=== PATIENT | female | born 1960 | race Caucasian/White ===

== ENCOUNTER 2021-06-08 16:34 | Emergency (ER) | payer OTHER ==
--- NOTE | 2021-06-08 20:02 | EDPHYS ---
Physician Documentation [facility] Name: Lamar Whaley Age: 61 yrs Sex: Female : 1960 Arrival Date: 06/08/2021 Time: 16:39 Bed 15 Private MD: AMOS Physician Michael Huggins HPI: 06/08 19:48 This 61 yrs old Female presents to ER via Wheelchair with complaints of Feet tino Swelling. 19:48 The patient presents with decreased range of motion, pain, swelling, tenderness. The tino complaints affect the right foot. Context: The problem was sustained outdoors. Onset: The symptoms/episode began/occurred 3 day(s) ago. Modifying factors: The symptoms are alleviated by elevation of extremity, the symptoms are aggravated by weight bearing, movement, wearing shoes. Associated signs and symptoms: The patient has no apparent associated signs or symptoms. Severity of symptoms: At their worst the symptoms were moderate, in the emergency department the symptoms are unchanged. The patient has not experienced similar symptoms in the past. Historical: - Allergies: 16:59 TETRACYCLINES; ca1 - Home Meds: 16:59 None [Active]; ca1 - PMHx: 16:59 None; ca1 - PSHx: 16:59 hysterectomy; ca1 - Immunization history:: Client reports having NOT received the Covid vaccine. Flu vaccine is up to date. - Social history:: Smoking status: Patient reports the use of cigarette tobacco products, smokes one-half pack cigarettes per day. - Family history:: not pertinent. ROS: 19:48 Constitutional: Negative for fever, chills, and weight loss, Eyes: Negative for injury, tino pain, redness, and discharge, ENT: Negative for injury, pain, and discharge, Neck: Negative for injury, pain, and swelling, Cardiovascular: Negative for chest pain, palpitations, and edema, Respiratory: Negative for shortness of breath, cough, wheezing, and pleuritic chest pain, Abdomen/GI: Negative for abdominal pain, nausea, vomiting, diarrhea, and constipation, Back: Negative for injury and pain, : Negative for injury, bleeding, discharge, and swelling, Skin: Negative for injury, rash, and discoloration, Neuro: Negative for headache, weakness, numbness, tingling, and seizure, Psych: Negative for depression, anxiety, suicide ideation, homicidal ideation, and hallucinations, Allergy/Immunology: Negative for hives, rash, and allergies, Endocrine: Negative for neck swelling, polydipsia, polyuria, polyphagia, and marked weight changes, Hematologic/Lymphatic: Negative for swollen nodes, abnormal bleeding, and unusual bruising. 19:48 MS/extremity: Positive for decreased range of motion, pain, swelling, tenderness, of the lateral side of right foot, arch of right foot and dorsum of right foot. Exam: 19:48 Constitutional: This is a well developed, well nourished patient who is awake, alert, tino and in no acute distress. Head/Face: Normocephalic, atraumatic. Eyes: Pupils equal round and reactive to light, extra-ocular motions intact. Lids and lashes normal. Conjunctiva and sclera are non-icteric and not injected. Cornea within normal limits. Periorbital areas with no swelling, redness, or edema. ENT: Nares patent. No nasal discharge, no septal abnormalities noted. Tympanic membranes are normal and external auditory canals are clear. Oropharynx with no redness, swelling, or masses, exudates, or evidence of obstruction, uvula midline. Mucous membranes moist. Neck: Trachea midline, no thyromegaly or masses palpated, and no cervical lymphadenopathy. Supple, full range of motion without nuchal rigidity, or vertebral point tenderness. No Meningismus. Chest/axilla: Normal chest wall appearance and motion. Nontender with no deformity. No lesions are appreciated. Cardiovascular: Regular rate and rhythm with a normal S1 and S2. No gallops, murmurs, or rubs. Normal PMI, no JVD. No pulse deficits. Respiratory: Lungs have equal breath sounds bilaterally, clear to auscultation and percussion. No rales, rhonchi or wheezes noted. No increased work of breathing, no retractions or nasal flaring. Abdomen/GI: Soft, non-tender, with normal bowel sounds. No distension or tympany. No guarding or rebound. No evidence of tenderness throughout. Back: No spinal tenderness. No costovertebral tenderness. Full range of motion. Female : Normal external genitalia. Skin: Warm, dry with normal turgor. Normal color with no rashes, no lesions, and no evidence of cellulitis. Neuro: Awake and alert, GCS 15, oriented to person, place, time, and situation. Cranial nerves II-XII grossly intact. Motor strength 5/5 in all extremities. Sensory grossly intact. Cerebellar exam normal. Normal gait. Psych: Awake, alert, with orientation to person, place and time. Behavior, mood, and affect are within normal limits. 19:48 Musculoskeletal/extremity: ROM: limited active range of motion, in the right foot, limited passive range of motion, Circulation is intact in all extremities. Sensation intact. Compartment Syndrome exam of affected extremity: is normal. DVT Exam: negative Homans' sign noted on exam, no appreciated bluish discoloration, no erythema, no increased warmth, pain, swelling, tenderness. Vital Signs: 16:56 BP 128 / 68; Pulse 92; Resp 18 S; Temp 97.3(TE); Pulse Ox 99% on R/A; Weight 72.57 kg ca1 (R); Height 5 ft. 1 in. (154.94 cm); Pain 7/10; 19:49 BP 127 / 73; Pulse 73; Resp 17; Pulse Ox 97% on R/A; Pain 7/10; bs2 16:56 Body Mass Index 30.23 (72.57 kg, 154.94 cm) ca1 MDM: 19:38 Patient medically screened. [facility] 19:50 Differential diagnosis: fracture, sprain, arthritis, gout. Data reviewed: vital signs, [facility] nurses notes, radiologic studies, plain films. Data interpreted: electronic device monitor: not applicable for this patient encounter. rate is 73 beats/min, rhythm is regular, Pulse oximetry: on room air is 97 %. Test interpretation: by ED physician or midlevel provider: plain radiologic studies. Counseling: I had a detailed discussion with the patient and/or guardian regarding: the historical points, exam findings, and any diagnostic results supporting the discharge/admit diagnosis, radiology results, the need for outpatient follow up, for definitive care, a family practitioner, a orthopedic surgeon. 06/08 19:28 Order name: XRAY Chest (1 view) [facility] 06/08 19:28 Order name: Cardiac monitoring; Complete Time: 19:46 [facility] 06/08 19:47 Order name: Foot Right 3 View XRAY [facility] 06/08 19:28 Order name: O2 Per Protocol; Complete Time: 19:47 [facility] 06/08 20:02 Order name: Walking boot [facility] Administered Medications: 19:46 CANCELLED (Duplicate Order): NS 0.9% 1000 ml IV at 75 ml/hr continuous tino Disposition Summary: 06/08/21 20:01 Discharge Ordered Location: Home [facility] Problem: new tino Symptoms: have improved tino Condition: Stable tino Diagnosis - Pain in right foot tino - Sprain of tarsal ligament of right foot - swelling tino Followup: tino - With: Private Physician - When: 2 - 3 days - Reason: Recheck today's complaints, Continuance of care, Re-evaluation by your physician Followup: tino - With: Stuart Viveros MD - When: 2 - 3 days - Reason: Recheck today's complaints, Re-evaluation by your physician Discharge Instructions: - Discharge Summary Sheet tino - Foot Sprain tino - RICE Therapy for Routine Care of Injuries tino - RICE Therapy for Routine Care of Injuries, [id number] tino - How to Use Cold Therapy tino - Foot Pain tino Forms: - Medication Reconciliation Form tino - Thank You Letter tino - Antibiotic Education tino - Prescription Opioid Use [facility] Prescriptions: - Ibuprofen 600 mg Oral Tablet - take 1 tablet by ORAL route every 6 hours As needed take with food; 20 tablet; [facility] Refills: 0, Product Selection Permitted Signatures: Dispatcher [employer] EDMichael Cochran MD MD cha Acob, Cheryl RN RN ca1 Corrections: (The following items were deleted from the chart) 16:59 16:59 Allergies: No Known Allergies; ca1 ca1 19:46 19:28 EKG - Nurse/Tech ordered. [facility] 19:46 19:28 Urine Dipstick-Ancillary ordered. [facility] 19:46 19:28 NS 0.9% 1000 ml IV at 75 ml/hr continuous ordered. [facility] 19:47 19:28 IV Saline Lock ordered. [facility] 19:47 19:28 Labs collected and sent ordered. [facility] 19:47 19:28 O2 Sat Monitoring ordered. [facility] 20:44 19:29 Extrem Venous W Compression Joshua+[id number] ordered. EDMS EDMS
--- NOTE | 2021-06-08 20:02 | ER ---
Nurse's Notes [facility] Name: Laamr Whaley Age: 61 yrs Sex: Female : 1960 Arrival Date: 06/08/2021 Time: 16:39 Bed 15 Private MD: Diagnosis: Pain in right foot;Sprain of tarsal ligament of right foot-swelling Presentation: 06/08 16:56 Chief complaint: Patient states: R foot pain and swelling x 2 days. Denies recent ca1 injury on R foot. Coronavirus screen: Client denies travel out of the [place] in the last 14 days. At this time, the client does not indicate any symptoms associated with coronavirus-19. Ebola Screen: Patient negative for fever greater than or equal to 101.5 degrees Fahrenheit, and additional compatible Ebola Virus Disease symptoms Patient denies exposure to infectious person. Patient denies travel to an Ebola-affected area in the 21 days before illness onset. No symptoms or risks identified at this time. Initial Sepsis Screen: Does the patient meet any 2 criteria? No. Patient's initial sepsis screen is negative. Does the patient have a suspected source of infection? No. Patient's initial sepsis screen is negative. Risk Assessment: Do you want to hurt yourself or someone else? Patient reports no desire to harm self or others. Onset of symptoms was June 08, 2021. 16:56 Method Of Arrival: Wheelchair ca1 16:56 Acuity: WINSOME 3 ca1 Historical: - Allergies: 16:59 TETRACYCLINES; ca1 - Home Meds: 16:59 None [Active]; ca1 - PMHx: 16:59 None; ca1 - PSHx: 16:59 hysterectomy; ca1 - Immunization history:: Client reports having NOT received the Covid vaccine. Flu vaccine is up to date. - Social history:: Smoking status: Patient reports the use of cigarette tobacco products, smokes one-half pack cigarettes per day. - Family history:: not pertinent. Screenin:50 Abuse screen: Denies threats or abuse. Denies injuries from another. Nutritional bs2 screening: No deficits noted. Tuberculosis screening: No symptoms or risk factors identified. Fall Risk None identified. Assessment: 19:50 General: Appears in no apparent distress. uncomfortable, well groomed, well developed, bs2 well nourished, Behavior is calm, cooperative, appropriate for age. Pain: Complains of pain in right foot Pain currently is 7 out of 10 on a pain scale. Pain began 2-3 days ago. Neuro: No deficits noted. Cardiovascular: No deficits noted. Respiratory: No deficits noted. GI: No deficits noted. No signs and/or symptoms were reported involving the gastrointestinal system. : No deficits noted. No signs and/or symptoms were reported regarding the genitourinary system. EENT: No deficits noted. No signs and/or symptoms were reported regarding the EENT system. Derm: No deficits noted. No signs and/or symptoms reported regarding the dermatologic system. Musculoskeletal: No deficits noted. No signs and/or symptoms reported regarding the musculoskeletal system. Vital Signs: 16:56 BP 128 / 68; Pulse 92; Resp 18 S; Temp 97.3(TE); Pulse Ox 99% on R/A; Weight 72.57 kg ca1 (R); Height 5 ft. 1 in. (154.94 cm); Pain 7/10; 19:49 BP 127 / 73; Pulse 73; Resp 17; Pulse Ox 97% on R/A; Pain 7/10; bs2 16:56 Body Mass Index 30.23 (72.57 kg, 154.94 cm) ca1 ED Course: 16:39 Patient arrived in ED. mr 16:58 Triage completed. ca1 16:59 Arm band placed on right wrist. ca1 19:27 Michael Huggins MD is Attending Physician. tino 19:29 Jahaira Gaston, RN is Primary Nurse. bs2 19:50 Patient has correct armband on for positive identification. Call light in reach. Side bs2 rails up X 1. Pulse ox on. NIBP on. 20:00 Stuart Viveros MD is Referral Physician. tino 20:12 XRAY Chest (1 view) In Process Unspecified. EDMS 20:12 Foot Right 3 View XRAY In Process Unspecified. EDMS 20:59 No provider procedures requiring assistance completed. Patient did not have IV access bs2 during this emergency room visit. Small short walking boot, RT foot. Administered Medications: 19:46 CANCELLED (Duplicate Order): NS 0.9% 1000 ml IV at 75 ml/hr continuous tino Outcome: 20:01 Discharge ordered by . tino 21:00 Discharged to home ambulatory, with family. bs2 21:00 Condition: improved 21:00 Discharge instructions given to patient, Instructed on discharge instructions, follow up and referral plans. PARESH Demonstrated understanding of instructions, follow-up care, medications, splint care, Prescriptions given X 1. 21:01 Patient left the ED. bs2 Signatures: Dispatcher [employer] EDMichael Cochran MD MD cha Rivera, Mary mr Bertha Strickland, VIVEK RN ca1 Jahaira Gaston RN RN bs2 Corrections: (The following items were deleted from the chart) 16:59 16:59 Allergies: No Known Allergies; ca1 ca1
--- NOTE | 2021-06-08 20:27 | RAD REPORT ---
EXAM DESCRIPTION: RAD - Chest Single View - 06/08/2021 8:12 pm CLINICAL HISTORY: COUGH COMPARISON: November 2019 TECHNIQUE: AP portable chest image was obtained 06/08/2021 8:12 pm . FINDINGS: Lungs are clear. Heart and vasculature are normal. No measurable pleural effusion and no p neumothorax. No acute bony abnormality seen. No acute aortic findings suspected. IMPRESSION: No acute cardiopulmonary process. No significant change from comparison study.
--- NOTE | 2021-06-08 20:33 | RAD REPORT ---
EXAM DESCRIPTION: RAD - Foot Right 3 View - 06/08/2021 8:12 pm CLINICAL HISTORY: PAIN COMPARISON: No comparisonsNone. FINDINGS: No fracture, dislocation or periosteal reaction. No acute or destructive bone process. No significant joint degenerative change. No plantar spur present. Soft tissue edema is evident but there is no air or foreign body seen. IMPRESSION: Soft tissue swelling right foot with no acute bone or joint finding.
[2021-06-08 21:06] VITALS: TEMP 97.3
[2021-06-08 21:07] VITALS: BP 127/73; O2SAT 97
== END 2021-06-08 21:01 | disposition home or self-care (01) ==
LOC: ER 16:34
DX: S93.611A Sprain of tarsal ligament of right foot, initial encounter (principal); F17.210 Nicotine dependence, cigarettes, uncomplicated; Z88.3 Allergy status to other anti-infective agents
CPT/HCPCS: 71045; 99284

== ENCOUNTER 2023-05-10 23:16 | Emergency (ER) | payer OTHER ==
--- OUTSIDE RECORDS SUMMARY | 2023-05-10 23:19 | XMS REPORT | Continuity of Care Document ---
:1960 Author Organization [facility] [place] t Address [address] [facility]. [address] [place] [address] Care Team Providers Name Role Phone OLGA MARTINEZ Primary Care Physician Unavailable ELIZABETH Attending Clinician Unavailable PARTH HERRERA Attending Clinician Unavailable ALMAS GUTIERREZ K.[place] Attending Clinician Unavailable Doctor Unassigned, [place] Attending Clinician Unavailable Matt NI, Sendkimberly K.H. Attending Clinician PREM VALDEZ Attending Clinician Unavailable ELIZABETH Admitting Clinician Unavailable Payers Payer Name Policy Type Policy Number Effective Date Expiration Date Sky rausch [facility] STAR [id number] 2016 00:00:00 PLUS Problems Condition Condition Condition Status Onset Resolution Last Treating Co mments Source Name Details Category Date Date Treatment Clinician Date Cannabis Cannabis Disease Active 2006-11 Overview: Un pravin abuse abuse 0-22 Formattin ity of 00:00: g of this [place] 00 note Medical might be Branch different from the original. 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 Allergies, Adverse Reactions, Alerts Allergy Allergy Status Severity Reaction(s) Onset Inactive Treating Comm ents Source Name Type Date Date Clinician TETRACYC DRUG Active Other-Cmnt Univ ers LINE INGREDI 08-17 ity of 00:00: [place] 00 Medical Branch Tetracyc Propensi Active Other - See Burning Univers line ty to comments 08-17 Feeling ity of adverse 00:00: [place] reaction 00 Medical s [place] Social History Social Habit Start Date Stop Date Quantity Comments Source Exposure to Not sure [facility] SARS-CoV-2 (event) Medica l [place] Tobacco use and 2021-08-17 2021-08-17 Never used [facility] exposure 00:00:00 00:00:00 [facility] Sex Ass[birth year] [facility] 00:00:00 00:00:00 [facility] Smoking Status Start Date Stop Date Source Current every day smoker 2021-08-17 00:00:00 Uni versity [facility] Medications Ordered Filled Start Stop Current Ordering Indication Dosage Frequency Signature Comments Components Source Medication Medication Date Date Medication? Clinician (SIG) Name Name methylPREDN Yes [id number] 84mg Take 21 Univers ISolone 7-28 9107 tablets by ity of (MEDROL, 00:00: mouth [place] MICHELE,) 4 mg 00 SEE-INSTRU Med ical tablets CTIONS. Branch follow package directions methylPREDN 2020- Yes [id number] 84mg Take 21 Univers ISolone 7-28 9107 tablets by ity of (MEDROL, 00:00: mouth [place] MICHELE,) 4 mg 00 SEE-INSTRU Med ical tablets CTIONS. Branch follow package directions methylPREDN 2020-0 Yes [id number] 84mg Take 21 Univers ISolone 7-28 9107 tablets by ity of (MEDROL, 00:00: mouth [place] MICHELE,) 4 mg 00 SEE-INSTRU Med ical tablets CTIONS. Branch follow package directions methylPREDN Yes [id number] 84mg Take 21 Univers ISolone 7-28 9107 tablets by ity of (MEDROL, 00:00: mouth [place] MICHELE,) 4 mg 00 SEE-INSTRU Med ical tablets CTIONS. Branch follow package directions QUETIAPINE 2006-11 Yes 2 Tab Oral U nivers 25 MG ORAL 0-22 PRN for ity of TAB 00:00: anxiety up [place] 00 to 3 times Medical in a day Branch CITALOPRAM 2006-11 Yes 1 Tab Oral U nivers 20 MG ORAL 0-22 DAILY ity of TAB 00:00: [place] 00 Medical Branch TRAZODONE 2006-11 Yes one tab PO Un pravin 100 MG ORAL 0-22 QHS ity of TAB 00:00: [place] 00 Medical Branch QUETIAPINE 2006-11 Yes 2 Tab Oral U nivers 25 MG ORAL 0-22 PRN for ity of TAB 00:00: anxiety up [place] 00 to 3 times Medical in a day Branch CITALOPRAM 2006-11 Yes 1 Tab Oral U nivers 20 MG ORAL 0-22 DAILY ity of TAB 00:00: [place] 00 Medical Branch TRAZODONE 2006-11 Yes one tab PO Un pravin 100 MG ORAL 0-22 QHS ity of TAB 00:00: [place] 00 Medical Branch QUETIAPINE 2006-11 Yes 2 Tab Oral U nivers 25 MG ORAL 0-22 PRN for ity of TAB 00:00: anxiety up [place] 00 to 3 times Medical in a day Branch CITALOPRAM 2006-11 Yes 1 Tab Oral U nivers 20 MG ORAL 0-22 DAILY ity of TAB 00:00: [place] 00 Medical Branch TRAZODONE 2006-11 Yes one tab PO Un pravin 100 MG ORAL 0-22 QHS ity of TAB 00:00: [place] 00 Medical Branch QUETIAPINE 2006-11 Yes 2 Tab Oral U nivers 25 MG ORAL 0-22 PRN for ity of TAB 00:00: anxiety up [place] 00 to 3 times Medical in a day Branch CITALOPRAM 2006-11 Yes 1 Tab Oral U nivers 20 MG ORAL 0-22 DAILY ity of TAB 00:00: [place] 00 Medical Branch TRAZODONE 2006-11 Yes one tab PO Un pravin 100 MG ORAL 0-22 QHS ity of TAB 00:00: [place] 00 Medical Branch Vital Signs Vital Name Observation Time Observation Value Comments Source Systolic blood 2021-08-17 19:51:00 145 mm[Hg] Univer sity of pressure [facility] Diastolic blood 2021-08-17 19:51:00 91 mm[Hg] Unive rsity of pressure [facility] Heart rate 2021-08-17 19:47:00 75 /min [facility] Respiratory rate 2021-08-17 19:47:00 20 /min Univ ersity [facility] Body height 2021-08-17 19:47:00 154.9 cm [facility] Body weight 2021-08-17 19:47:00 70.217 kg [facility] BMI 2021-08-17 19:47:00 29.25 kg/m2 [facility] Oxygen saturation in 2021-08-17 19:47:00 95 /min [facility] Arterial blood by [facility] Pulse oximetry [place] Procedures Procedure Date / Time Performing Clinician Source Performed INSURANCE CORRESPONDENCE 2021-11-27 06:01:00 Doctor Unassigned, [facility] Name [facility] INSURANCE CORRESPONDENCE 2021-10-15 06:01:00 Doctor Unassigned, [facility] Name [facility] HB ECG ROUTINE & RHYTHM 2021-08-17 19:50:57 Almas Gutierrez [facility] Encounters Start End Encounter Admission Attending Care Care Encounter Source Date/Time Date/Time Type Type Clinicians Facility Department ID 2022-06-08 2022-06-08 Outpatient AYLIN NEWELL [id number] 10:44:00 10:44:00 HN [id number] da [facility] Outre h Program 2022-01-14 2022-01-14 Outpatient Mckayla HERRERA [facility] [id number] Univers 08:30:00 08:30:00 PARTH [facility] 2021-12-03 2021-12-03 Outpatient Mckayla GUTIERREZ [facility] [id number] Univers 13:00:00 13:00:00 SENDIL [facility] 2021-11-27 2021-11-27 Outpatient Mckayla GUTIERREZ [facility] [id number] Univers 13:00:00 13:00:00 SENDIL [facility] 2021-11-27 2021-11-27 Orders Doctor ALEX [id number] Univers 00:00:00 00:00:00 Only Unassigned, NAIDA [id number] ity of [place] [facility] [id number] Ranjith as [phone] [address] 2021-11-03 2021-11-03 [facility] [id number] Univers 13:00:00 13:00:00 SENDIL ity [facility] 2021-10-16 2021-10-16 Outpatient R MATT [facility] [id number] Univers 13:00:00 13:00:00 SENDIL ity [facility] 2021-10-15 2021-10-15 [facility] [id number] Univers 00:00:00 00:00:00 SENDIL ity [facility] 2021-10-15 2021-10-15 Orders Doctor ALEX [id number] Univers 00:00:00 00:00:00 Only Unassigned, NAIDA [id number] ity of [place] [facility] [id number] Ranjith as [phone] [address] 2021-10-07 2021-10-07 [facility] [id number] Univers 00:00:00 00:00:00 Sendil Cami MARTIN [id number] ity [facility] [id number] [place] PROF[place] [phone] Mt dical NAL 059 [facility] 2021-09-29 2021-09-29 Outpatient R MATT [facility] [id number] Univers 14:30:00 14:30:00 SENDIL ity [facility] 2021-09-21 2021-09-21 [facility] [id number] Univers 13:00:00 13:00:00 SENDIL ity [facility] 2021-09-10 2021-09-10 [facility] [id number] Univers 00:00:00 00:00:00 SENDIL ity [facility] 2021-09-092021-09-09 Outpatient R MATT [facility] [id number] Univers 16:00:00 16:00:00 SENDIL ity [facility] 2021-08-26 2021-08-26 Outpatient R MATT [facility] [id number] Univers 00:00:00 00:00:00 [facility]-08-17 2021-08-17 [facility] [id number] Univers 14:30:00 15:12:46 [facility] 2021-08-17 2021-08-17 [facility] [id number] Univers 14:13:58 15:12:46 [facility]il [id number] Man leung PROFESSIO [phone] Mt dical [facility]9 [facility] 2021-08-17 2021-08-17 [facility] [id number] Univers 14:30:00 14:30:00 SENDIL [facility] 2021-07-20 2021-07-20 [facility] [id number] Univers 13:30:00 13:30:00 SENDIL [facility] 2021-06-24 2021-06-24 [facility] [id number] Univers 13:30:00 13:30:00 PREM [facility] 2021-06-23 2021-06-23 [facility] [id number] Univers 14:15:00 14:15:00 PARTH [facility] Results This patient has no known results.
[2023-05-10] MEDS ORDERED: CEFAZOLIN SODIUM 1 GM/VIAL ONE (23:40)
[2023-05-10] MEDS ORDERED: FENTANYL CITR 100 MCG/2 ML ONE (23:40)
[2023-05-10] MEDS ORDERED: TETANUS & DIPHTHERIA TOX,ADULT 0.5 ML VIAL ONE (23:41)
[2023-05-10] MEDS ORDERED: NA CHLORIDE 0.9% 100 ML ONE (23:41)
[2023-05-10 23:55] LABS: Absolute Lymphocytes (CBC) 2.3 K/uL (0.7-4.9); Hematocrit 44.5 % (36.0-45.0); Lymphocytes % 36.7 % (15.3-44.8); MCV 86.7 fL (80-100); MPV 7.9 fL (7.6-11.3); RBC Red Blood Cell Count 5.13 M/uL (3.86-4.86)
[2023-05-11 00:03] LABS: Potassium 3.7 mEq/L (3.5-5.1)
[2023-05-11] MEDS ORDERED: KETAMINE HCL IN 0.9 % NACL 50 MG/5 ML SYRINGE IV ONE (00:13)
[2023-05-11] MEDS ORDERED: NA CHLORIDE 0.9% 1,000 ML ONE (00:16)
--- NOTE | 2023-05-11 01:47 | EDPHYS ---
Physician Documentation [facility] Name: Lamar Whaley Age: 63 yrs Sex: Female : 1960 Arrival Date: 05/10/2023 Time: 23:16 Bed 3 Private MD: ED Physician Saad Long HPI: 05/11 01:57 This 63 yrs old Female presents to ER via EMS with complaints of Fall Injury. rt 01:57 Patient presents to the ED following mechanical fall downstairs. Patient reportedly had rt an open fracture to the right wrist, patient complains of right ankle pain. Denies other acute complaints at this time. Patient is a acute issue, severe in severity, nonradiating, no other aggravating alleviating factors.. Historical: - Allergies: 05/10 23:23 TETRACYCLINES; kd3 - PSHx: 23:23 hysterectomy; kd3 - Immunization history:: Adult Immunizations up to date. - Social history:: Smoking status: Patient reports the use of cigarette tobacco products, smokes one-half pack cigarettes per day. - Immunization history: Last tetanus immunization: < 10 years ago. - Family history:: not pertinent. ROS: 05/11 01:57 Constitutional: Negative for fever, chills, and weight loss, Neck: Negative for injury, rt pain, and swelling, Cardiovascular: Negative for chest pain, palpitations, and edema, Respiratory: Negative for shortness of breath, cough, wheezing, and pleuritic chest pain, Abdomen/GI: Negative for abdominal pain, nausea, vomiting, diarrhea, and constipation, Neuro: Negative for headache, weakness, numbness, tingling, and seizure, Psych: Negative for depression, anxiety, suicide ideation, homicidal ideation, and hallucinations. MS/extremity: Positive for injury or acute deformity, laceration. Exam: 01:57 Constitutional: This is a well developed, well nourished patient who is awake, alert, rt and in no acute distress. Head/Face: Normocephalic, atraumatic. Neck: Trachea midline, no thyromegaly or masses palpated, and no cervical lymphadenopathy. Supple, full range of motion without nuchal rigidity, or vertebral point tenderness. No Meningismus. Chest/axilla: Normal chest wall appearance and motion. Nontender with no deformity. No lesions are appreciated. Cardiovascular: Regular rate and rhythm with a normal S1 and S2. No gallops, murmurs, or rubs. Normal PMI, no JVD. No pulse deficits. Respiratory: Lungs have equal breath sounds bilaterally, clear to auscultation and percussion. No rales, rhonchi or wheezes noted. No increased work of breathing, no retractions or nasal flaring. Abdomen/GI: Soft, non-tender, with normal bowel sounds. No distension or tympany. No guarding or rebound. No evidence of tenderness throughout. Neuro: Awake and alert, GCS 15, oriented to person, place, time, and situation. Cranial nerves II-XII grossly intact. Motor strength 5/5 in all extremities. Sensory grossly intact. Cerebellar exam normal. Normal gait. Psych: Awake, alert, with orientation to person, place and time. Behavior, mood, and affect are within normal limits. 01:57 Musculoskeletal/extremity: Obvious dorsal deformity to the distal right forearm, there is a puncture wound noted overlying the ulna at the area of the fracture concerning for open fracture. Pulses, motor, sensation are intact. There is mild to moderate swelling at the right ankle, tenderness diffusely at that region, range of motion limited due to pain. No other swelling, deformity, tenderness to palpation x4 extremities. Vital Signs: 05/10 23:20 BP 146 / 78; Pulse 73; Resp 16; Temp 97.6(TE); Pulse Ox 94% on R/A; Weight 71.21 kg; kd3 05/11 00:00 BP 138 / 70; Pulse 58; Resp 16; Temp 97.6; Pulse Ox 99% on 3 lpm NC; aa9 01:08 BP 163 / 95; Pulse 74; Resp 14 S; Pulse Ox 98% on R/A; as7 03:09 BP 152 / 78; Pulse 72; Resp 14 S; Pulse Ox 95% on R/A; as7 [place] Coma Score: 05/10 23:20 Eye Response: spontaneous(4). Motor Response: obeys commands(6). Verbal Response: aa9 oriented(5). Total: 15. Trauma Score (Adult): 23:20 Eye Response: spontaneous(1); Verbal Response: oriented(1); Motor Response: obeys aa9 commands(2); Systolic BP: > 89 mm Hg(4); Respiratory Rate: 10 to 29 per min(4); [place] Score: 15; Trauma Score: 12 Procedures: 05/11 01:57 Reduction: of the right wrist, using traction, manipulation, Immobilized with rt Sugar-tong splint. Patient tolerated well. Post reduction film - reveals improved alignment. Moderate sedation: Pre-procedure assessment: the patient has been NPO 3 hour(s) prior to arrival, ASA physical classification: I - healthy, no underlying organic disease, Airway assessment: able to hyperextend neck, able to maintain airway, can open mouth without difficulty, Mallampati classification of tongue size: I - faucial pillars, soft palate, and uvula can be fully visualized, Monitoring during procedure: monitor technician, continuous pulse oximetry, nurse at bedside at all times, Medications employed: Ketamine, 75 mg(s), Post-procedure assessment: the patient is not sedated, Ardon sedation score: Respiratory status: even and unlabored, a reversal agent was not used. MDM: 05/10 23:27 Patient medically screened. rt 05/11 01:57 Differential diagnosis: fracture, laceration. Data reviewed: vital signs, nurses notes, rt lab test result(s), radiologic studies. Consideration of Admission/Observation Patient requires transfer to trauma center for higher level of care. I considered the following discharge prescriptions or medication management in the emergency department Medications were administered in the Emergency Department. See MAR. Independent interpretation of the following test(s) in the Emergency Department X-Ray: My interpretation is Fracture seen on interpretation of the x-ray images. Counseling: I had a detailed discussion with the patient and/or guardian regarding: the historical points, exam findings, and any diagnostic results supporting the discharge/admit diagnosis, lab results, radiology results, the need to transfer to another facility. 05/10 23:26 Order name: Basic Metabolic Panel; Complete Time: :34 rt 05/10 23:26 Order name: CBC with Diff; Complete Time: :34 rt 05/10 23:26 Order name: Type And Screen; Complete Time: :34 rt 05/11 01:32 Order name: ABO/RH no charge; Complete Time: 01:34 EDMS 05/10 23:26 Order name: CT Traumagram (Head C Spine CAP W Con) rt 05/10 23:26 Order name: Forearm Right XRAY rt 06/13 23:26 Order name: Elbow Right 3 View XRAY rt 05/10 23:26 Order name: Ankle Right 3 View XRAY rt 05/11 00:25 Order name: Forearm Right XRAY rt 05/10 23:26 Order name: Labs collected and sent; Complete Time: 23:52 rt 05/11 01:46 Order name: Misc. Order: Boot to right foot; Complete Time: 02:21 rt Administered Medications: 05/10 23:37 Drug: fentaNYL (PF) IVP 100 mcg Route: IVP; Site: left antecubital; aa9 23:47 Drug: Tetanus-Diphtheria Toxoid IM Adult 0.5 ml {Desk Pen Set Assembler: Watchfinder. Exp: aa9 05/07/2024. Lot #: [id number]. } Route: IM; Site: left deltoid; 23:50 Follow up: Response: (VIS) Vaccine information sheet provided today. Questions and/or aa9 concerns addressed. VIS edition date: Jul 03, 2021.; No adverse reaction 05/11 00:39 Drug: Ketamine IVP 75 mg {Note: given by Yesica DOYLE.} Route: IVP; Site: left antecubital; aa9 01:03 Drug: ceFAZolin IVPB 2 grams Route: IVPB; Infused Over: 30 mins; Site: left antecubital;aa9 01:36 Follow up: Response: No adverse reaction; IV Status: Completed infusion; IV Intake: aa9 100ml 03:32 Drug: morphine IVP or IV 4 mg Route: IVP; Infused Over: 4 mins; Site: left antecubital; aa9 Disposition Summary: 05/11/23 01:46 Transfer Ordered Transfer Location: [facility] rt Reason: Higher level of care rt Condition: Fair rt Problem: new rt Symptoms: have improved rt Accepting Physician: Dr. Guevara(05/11/23 03:34) aa9 Diagnosis - Fall from stairs rt - Comminuted, displaced open fracture of the right distal radius and ulna rt - Right calcaneus fracture rt Forms: - Medication Reconciliation Form rt - SBAR form rt Signatures: Dispatcher [employer] Jennifer Ch RN RN kd3 Zoraida Damon RN RN aa9 Saad Long MD MD rt Corrections: (The following items were deleted from the chart) 02:56 01:46 Dr. murray rt 03:34 02:56 Dr. Guevara rt aa9
--- NOTE | 2023-05-11 01:47 | ER ---
Nurse's Notes [facility] Name: Lamar Whaley Age: 63 yrs Sex: Female : 1960 Arrival Date: 05/10/2023 Time: 23:16 Bed 3 Private MD: Diagnosis: Fall from stairs;Comminuted, displaced open fracture of the right distal radius and ulna;Right calcaneus fracture Presentation: 05/10 23:20 Chief complaint: EMS states: She fell about 10 steps and is complaining of right wrist kd3 pain, right rib and right ankle pain. She has an open wrist fracture to the right side. She did not loose consciousness. pt placed in a C collar and back board. she was given 50 of fentanyl and 4 of Zofran in route. Coronavirus screen: Vaccine status: Patient reports receiving the 2nd dose of the covid vaccine. Ebola Screen: No symptoms or risks identified at this time. Initial Sepsis Screen: Does the patient meet any 2 criteria? No. Patient's initial sepsis screen is negative. Does the patient have a suspected source of infection? No. Patient's initial sepsis screen is negative. Risk Assessment: Do you want to hurt yourself or someone else? Patient reports no desire to harm self or others. Onset of symptoms was May 10, 2023. 23:20 Method Of Arrival: [facility]: [facility] kd3 23:20 Acuity: WINSOME 2 kd3 05/11 00:55 Care prior to arrival: Bleeding of injury controlled. Cervical collar in place. Placed aa9 on backboard. Mechanism of Injury: Fall from 1st story 15 steps. Trauma event details: Injury occurred in the [facility], Injury occurred: at home. Injury occurred: May 10, 2023 Injury occurred at: 23:00. Triage Assessment: 05/10 23:23 General: Appears uncomfortable, Behavior is calm, cooperative. Pain: Complains of pain kd3 in right lateral posterior chest, dorsal aspect of right wrist, palmar aspect of right wrist, right ankle, lateral aspect of right foot, right Achilles, medial aspect of right foot and anterior aspect of right ankle. Trauma Activation: Physician: ED Physician; Name: Ethan; Notified At: ; Arrived At: Physician: General Surgeon; Name: ; Notified At: ; Arrived At: Physician: Radiology; Name: ; Notified At: ; Arrived At: Physician: Respiratory; Name: ; Notified At: ; Arrived At: Physician: Lab; Name: ; Notified At: ; Arrived At: Historical: - Allergies: 23:23 TETRACYCLINES; kd3 - PSHx: 23:23 hysterectomy; kd3 - Immunization history:: Adult Immunizations up to date. - Social history:: Smoking status: Patient reports the use of cigarette tobacco products, smokes one-half pack cigarettes per day. - Immunization history: Last tetanus immunization: < 10 years ago. - Family history:: not pertinent. Screenin:25 Abuse screen: Denies threats or abuse. Denies injuries from another. kd3 05/11 00:56 [facility] ED Fall Risk Assessment (Adult) History of falling in the last 3 months, aa9 including since admission Yes- single mechanical fall (1 pt) Confusion or Disorientation No (0 pts) Intoxicated or Sedated No (0 pts) Impaired Gait Yes (1 pt) Mobility Assist Device Used No (0 pt) Altered Elimination No (0 pt) Score/Fall Risk Level 3 or more points = High Risk Oriented to surroundings, Maintained a safe environment, Educated pt \T\ family on fall prevention, incl call for assistance when getting out of bed. Nutritional screening: On. Tuberculosis screening: No symptoms or risk factors identified. Primary Survey: 05/10 23:30 NO uncontrolled hemorrhage observed. Breathing/Chest: Spontaneous respiratory effort, aa9 equal unlabored respirations, breath sounds clear bilaterally, regular pattern, symmetrical chest rise and fall. Circulation: No external hemorrhage present. Regular and strong central pulse, skin warm/dry/normal color. Disability Pupils are equal, round, reactive to light and accommodation. Exposure/Environment: All clothing and personal items were removed. A warming method has been applied: A warm blanket has been provided to the patient. Reassessment Breathing: Spontaneous respiratory effort, equal unlabored respirations, breath sounds clear bilaterally, regular pattern with symmetrical chest rise and fall. Circulation: No external hemorrhage noted. Regular and strong central pulse, skin warm/dry/normal color. Disability: Pupils Alert. Assessment: 23:28 General: Appears uncomfortable, unkempt, Behavior is cooperative, anxious, crying. aa9 Pain: Complains of pain in right wrist, right foot, right ankle Pain currently is 10 out of 10 on a pain scale. Noted to be crying, grimacing, moaning, resistant to movement. Neuro: Level of Consciousness is awake, alert, obeys commands, Oriented to person, place, time, situation. EENT:. Respiratory: Airway is patent Respiratory effort is even, unlabored. GI: No signs and/or symptoms were reported involving the gastrointestinal system. Derm: Wound noted right wrist Bruising that is dark purple, on gene knees, right foot. Musculoskeletal: Bony deformity noted of right wrist Swelling present in right ankle. 05/11 00:00 Reassessment: Ethan NI, Yesica RN, Kanu RT, [facility], Tanya BAL at bedside aa9 for conscious sedation procedure, see paper charting for details. 00:41 Reassessment: Patient appears in no apparent distress at this time. pt taken to CT via aa9 stretcher. 03:05 Reassessment: Patient appears in no apparent distress at this time. attempted to call aa9 report to [facility] ED. 03:32 Reassessment: Patient appears in no apparent distress at this time. Patient and/or aa9 family updated on plan of care and expected duration. Pain level reassessed. Patient is alert, oriented x 3, equal unlabored respirations, skin warm/dry/pink. [facility] at bedside. Vital Signs: 05/10 23:20 BP 146 / 78; Pulse 73; Resp 16; Temp 97.6(TE); Pulse Ox 94% on R/A; Weight 71.21 kg; kd3 05/11 00:00 BP 138 / 70; Pulse 58; Resp 16; Temp 97.6; Pulse Ox 99% on 3 lpm NC; aa9 01:08 BP 163 / 95; Pulse 74; Resp 14 S; Pulse Ox 98% on R/A; as7 03:09 BP 152 / 78; Pulse 72; Resp 14 S; Pulse Ox 95% on R/A; as7 Manor Coma Score: 05/10 23:20 Eye Response: spontaneous(4). Motor Response: obeys commands(6). Verbal Response: aa9 oriented(5). Total: 15. Trauma Score (Adult): 23:20 Eye Response: spontaneous(1); Verbal Response: oriented(1); Motor Response: obeys aa9 commands(2); Systolic BP: > 89 mm Hg(4); Respiratory Rate: 10 to 29 per min(4); Manor Score: 15; Trauma Score: 12 ED Course: 23:18 Patient arrived in ED. kd3 23:23 Triage completed. kd3 23:23 Arm band placed on right wrist. kd3 23:25 Saad Long MD is Attending Physician. rt 23:26 Maintain EMS IV. Dressing intact. Good blood return noted. Site clean \T\ dry. Gauge \T\ kd 3 site: 20 gauge left ankle . 23:26 Patient maintains SpO2 saturation greater than 95% on room air. aa9 23:40 Inserted saline lock: 20 gauge in left antecubital area, using aseptic technique. Blood oe collected. 23:51 Patient has correct armband on for positive identification. Placed in gown. Bed in low aa9 position. Side rails up X2. Client placed on continuous cardiac and pulse oximetry monitoring. NIBP monitoring applied. Warm blanket given. 23:52 Basic Metabolic Panel Sent. aa9 23:52 CBC with Diff Sent. aa9 23:52 Type And Screen Sent. aa9 06 00:00 Consent for conscious sedation explained by staff, signed by patient. aa9 00:03 Zoraida Damon, RN is Primary Nurse. aa9 00:19 Forearm Right XRAY In Process Unspecified. EDMS 00:19 Elbow Right 3 View XRAY In Process Unspecified. EDMS 00:19 Ankle Right 3 View XRAY In Process Unspecified. EDMS 00:32 Assist provider with fracture care of right wrist Fracture is open. Obvious deformity aa9 is noted. Circulation, motor and sensation is intact. Set up for procedure. Performed by Saad Long MD Reduced with physical manipulation. Immobilized with preformed splint, Post immobilization, circulation, motor and sensation remain intact. Patient tolerated well. 00:45 Forearm Right XRAY In Process Unspecified. EDMS 00:56 Thermoregulation: warm blanket given to patient. aa9 01:03 CT Traumagram (Head C Spine CAP W Con) In Process Unspecified. EDMS 01:51 1st attempt for initial transfer to [facility]. Waited for 18 minutes. 1 02:11 2nd attempt for initial transfer with [facility]. Waited for 20 mins, before [facility] speaking to VIVEK Velásquez. 02:54 Physician and Hospital approval from [facility], by Dr. Nj Guevara and ah1 Christen Menendez RN. 03:15 Contacted [facility] for transfer. 1 03:20 Facesheet faxed to [facility]. ah1 03:30 EMS arrived. ah1 03:33 Assisted with bedpan. aa9 03:33 Patient transferred, IV remains in place. aa9 Administered Medications: 05/10 23:37 Drug: fentaNYL (PF) IVP 100 mcg Route: IVP; Site: left antecubital; aa9 23:47 Drug: Tetanus-Diphtheria Toxoid IM Adult 0.5 ml {Supervisor Advice: Specle. Exp: aa9 05/07/2024. Lot #: [id number]. } Route: IM; Site: left deltoid; 23:50 Follow up: Response: (VIS) Vaccine information sheet provided today. Questions and/or aa9 concerns addressed. VIS edition date: Jul 03, 2021.; No adverse reaction 05/11 00:39 Drug: Ketamine IVP 75 mg {Note: given by Yesica DOYLE.} Route: IVP; Site: left antecubital; aa9 01:03 Drug: ceFAZolin IVPB 2 grams Route: IVPB; Infused Over: 30 mins; Site: left antecubital;aa9 01:36 Follow up: Response: No adverse reaction; IV Status: Completed infusion; IV Intake: aa9 100ml 03:32 Drug: morphine IVP or IV 4 mg Route: IVP; Infused Over: 4 mins; Site: left antecubital; aa9 Medication: 05/10 23:51 Vaccine Information Statement (VIS) provided today. Questions and/or concerns aa9 addressed. VIS edition date: July 07, 2021. Intake: 05/11 01:36 IV: 100ml; Total: 100ml. aa9 Outcome: 01:46 ER care complete, transfer ordered by . rt 03:33 Transferred by ground EMS to [facility], Transfer form completed. aa9 03:33 Condition: stable 03:33 Instructed on the need for transfer. 03:33 Patient's length of stay in the Emergency Department was greater than 2 hours. aa9 03:34 Patient left the ED. aa9 Signatures: Dispatcher [employer] EDMS Adin Bertrand Kyli, RN RN kd3 Zoraida Damon RN RN aa9 Saad Long MD MD rt Maria Isabel, Gisela as7 Luis Alberto Louis [facility] Corrections: (The following items were deleted from the chart) 06:30 03:15 [place] [id number]
[2023-05-11] MEDS ORDERED: MORPHINE 4 MG/ML SYR ONE (03:33)
[2023-05-11 03:47] VITALS: TEMP 97.6
[2023-05-11 04:01] VITALS: BP 152/78; O2SAT 95
--- NOTE | 2023-05-11 11:49 | RAD REPORT ---
EXAM DESCRIPTION: RAD - Ankle Right 3 View - 05/11/2023 12:17 am CLINICAL HISTORY: The patient is 63 years old and is Female; trauma TECHNIQUE: Frontal, lateral and oblique views of the right ankle. COMPARISON: No relevant prior studies available. FINDINGS: BONES/JOINTS: A nondisplaced calcaneal body fracture is noted. No dislocation. SOFT TISSUES: Unremarkable. IMPRESSION: Calcaneal body fracture. Electronically signed by: Verona Esparza MD 05/11/2023 1:10 AM CDT Due to temporary technical issues with the PACS/Fluency reporting system, reports are being signed by the in house radiologist without review as a courtesy to ensure prompt reporting. The interpreting r adiologist is fully responsible for the content of the report.
--- NOTE | 2023-05-11 11:51 | RAD REPORT ---
EXAM DESCRIPTION: CT - Head C Spine Cap Alex Beavers - 05/11/2023 6:53 am CLINICAL HISTORY: The patient is 63 years old and is Female; TRAUMA TECHNIQUE: Axial computed tomography images of the head/brain and cervical spine with intravenous co ntrast. Sagittal and coronal reformatted images were created and reviewed. This CT exam was perfo rmed using one or more of the following dose reduction techniques: automated exposure control, adju stment of the mA and/or kV according to patient size, and/or use of iterative reconstruction techniqu e. COMPARISON: No relevant prior studies available. FINDINGS: BRAIN: There is patchy hypoattenuation of the deep white matter which is non-specific, b ut most likely owing to chronic small vessel ischemic change in a patient of this age group. There is diffuse cerebral atrophy present, consistent with this patient's age. No intracranial hemorrhage , mass effect, midline shift is seen. There are no extra-axial fluid collections. VENTRICLES: Unremarkable. No ventriculomegaly. SKULL: No acute fracture. SINUSES: Unremarkable as visualized. No acute sinusitis. MASTOID AIR CELLS: Unremarkable as visualized. No mastoid effusion. VERTEBRAE: The vertebral body heights and alignment are maintained. No acute fracture. DISCS/SPINAL CANAL/NEURAL FORAMINA: The intervertebral disc spaces are maintained. No spinal sarai l stenosis. SOFT TISSUES: The soft tissues are normal. LUNG APICES: Unremarkable as visualized. IMPRESSION: 1. No acute intracranial findings. 2. No fracture or malalignment of the cervical spine. EXAM: CT Chest, Abdomen and Pelvis With Intravenous Contrast CLINICAL HISTORY: The patient is 63 years old and is Female; TRAUMA TECHNIQUE: Axial computed tomography images of the chest, abdomen and pelvis with intravenous contra st. Sagittal and coronal reformatted images were created and reviewed. This CT exam was performed using one or more of the following dose reduction techniques: automated exposure control, adjustme nt of the mA and/or kV according to patient size, and/or use of iterative reconstruction technique. COMPARISON: No relevant prior studies available. FINDINGS: ARTIFACTS: The exam is suboptimal secondary to motion artifact. CHEST: LUNGS: Minimal dependent atelectasis within the lung bases is noted. The lungs are otherwise sherif r. PLEURAL SPACE: Unremarkable. No significant effusion. No pneumothorax. HEART: No cardiomegaly. No pericardial effusion. MEDIASTINUM: A small hiatal hernia is present. ABDOMEN: LIVER: Unremarkable. No mass. GALLBLADDER AND BILE DUCTS: Calcified gallstone is present within the gallbladder. There is no du ctal dilatation. PANCREAS: Fatty infiltration of the pancreas is present. SPLEEN: Unremarkable. ADRENALS: Unremarkable. No mass. KIDNEYS AND URETERS: Unremarkable. The kidneys enhance symmetrically. No obstructing renal or ure teral calculus is seen. No hydronephrosis or hydroureter. No perinephric fluid or stranding. STOMACH AND BOWEL: The stomach is minimally filled with fluid. The small bowel is normal in calib er. Stool is present throughout colon. There is no mucosal thickening or evidence of obstruction. PELVIS: APPENDIX: The appendix is normal in caliber without surrounding inflammation. BLADDER: The bladder is well distended. REPRODUCTIVE: Unremarkable as visualized. CHEST, ABDOMEN and PELVIS: INTRAPERITONEAL SPACE: Unremarkable. No significant fluid collection. No free air. BONES/JOINTS: Fracture of the right distal radius and ulna is noted. There is no other acute frac ture of the visualized axial and appendicular skeleton. The vertebral body heights and alignment are maintained. Degenerative change at L5-S1 is present. SOFT TISSUES: The soft tissues are normal. VASCULATURE: Unremarkable. No aortic aneurysm. LYMPH NODES: Unremarkable. No enlarged lymph nodes. IMPRESSION: 1. No evidence of solid organ injury on this contrasted CT of the chest, abdomen, and pelvis. 2. Fractured distal right radius and ulna. Otherwise, no evidence of traumatic bony findings on thi s contrasted CT of the chest, abdomen, and pelvis. Electronically signed by: Verona Esparza MD 05/11/2023 1:37 AM CDT Due to temporary technical issues with the PACS/Fluency reporting system, reports are being signed by the in house radiologist without review as a courtesy to ensure prompt reporting. The interpreting r adiologist is fully responsible for the content of the report.
--- NOTE | 2023-05-11 12:09 | RAD REPORT ---
EXAM DESCRIPTION: RAD - Forearm Right - 05/11/2023 12:44 am CLINICAL HISTORY: The patient is 63 years old and is Female; post reduction TECHNIQUE: Frontal and lateral views of the right forearm. COMPARISON: XR Forearm dated May 10 2023 FINDINGS: BONES/JOINTS: Interval improvement in the alignment of the distal radius and ulnar fract ures as noted. Slight overriding of the fracture fragments remains. SOFT TISSUES: Soft tissue swelling about the wrist is noted. OTHER FINDINGS: There has been interval casting. IMPRESSION: Significantly improved alignment of the radius and ulna. Electronically signed by: Verona Esparza MD 05/11/2023 1:06 AM CDT Due to temporary technical issues with the PACS/Fluency reporting system, reports are being signed by the in house radiologist without review as a courtesy to ensure prompt reporting. The interpreting r adiologist is fully responsible for the content of the report.
--- NOTE | 2023-05-11 12:12 | RAD REPORT ---
EXAM DESCRIPTION: RAD - Elbow Right 3 View - 05/11/2023 12:17 amD CLINICAL HISTORY: The patient is 63 years old and is Female; trauma Elbow Right 3 View TECHNIQUE: Frontal, lateral and oblique views of the right elbow. COMPARISON: No relevant prior studies available. FINDINGS: BONES/JOINTS: Unremarkable. No acute fracture. No dislocation. SOFT TISSUES: Unremarkable. IMPRESSION: Normal right elbow radiographs. Electronically signed by: Verona Esparza MD 05/11/2023 1:38 AM CDT Ue to temporary technical issues with the PACS/Fluency reporting system, reports are being signed by the in house radiologist without review as a courtesy to ensure prompt reporting. The interpreting ra diologist is fully responsible for the content of the report.
--- NOTE | 2023-05-11 12:16 | RAD REPORT ---
EXAM DESCRIPTION: RAD - Forearm Right - 05/11/2023 12:17 am CLINICAL HISTORY: The patient is 63 years old and is Female; trauma TECHNIQUE: Frontal and lateral views of the right forearm. COMPARISON: No relevant prior studies available. FINDINGS: BONES/JOINTS: Comminuted and angulated fracture of the distal ulnar metaphysis is presen t. A displaced and angulated fracture of the distal radial metaphysis is present. No dislocation. SOFT TISSUES: Diffuse soft tissue swelling about the wrist is present. IMPRESSION: Distal radius and ulnar fractures. Electronically signed by: Verona Esparza MD 05/11/2023 1:05 AM CDT Due to temporary technical issues with the PACS/Fluency reporting system, reports are being signed by the in house radiologist without review as a courtesy to ensure prompt reporting. The interpreting r adiologist is fully responsible for the content of the report.
== END 2023-05-11 03:34 | disposition short-term general hospital (02) ==
LOC: ER 23:16
PROC: 0PSH35Z Reposition Right Radius with External Fixation Device, Percutaneous Approach (ICD-10-PCS; principal; 2023-05-11)
PROC: 0PSK35Z Reposition Right Ulna with External Fixation Device, Percutaneous Approach (ICD-10-PCS; 2023-05-11)
DX: S52.501B Unspecified fracture of the lower end of right radius, initial encounter for open fracture type I or II (principal); S52.601B Unspecified fracture of lower end of right ulna, initial encounter for open fracture type I or II; S92.001A Unspecified fracture of right calcaneus, initial encounter for closed fracture; W10.8XXA Fall (on) (from) other stairs and steps, initial encounter; Z23 Encounter for immunization; F17.210 Nicotine dependence, cigarettes, uncomplicated; Z88.1 Allergy status to other antibiotic agents
CPT/HCPCS: 85025; 80048; 36415; 86900; 86850; 86901; 70450; 72125; 71260; 74177; 73080; 73090 ×2; 73610; 90714; 25605; Q9967; J3010; J7030; J0690; 90471; 96365; 96375; 99285